=== PATIENT | male | born 1995 | race Caucasian/White ===

== ENCOUNTER 2017-01-26 21:15 | Emergency (ER) | payer MEDICAID ==
[2017-01-26 21:43] VITALS: BP 132/83
[2017-01-26] MEDS ORDERED: Bacitracin Oint 1 GM U/D Packet TOP ONE (22:05)
--- NOTE | 2017-01-26 22:09 | EDM.PDOC ---
[id number]: BUG BITE THAT IS INFECTED Time Seen by Provider: 01/26/17 21:50 Source of Information: Reports: Patient, Family History Limitations: Reports: No Limitations - History of Present Illness INITIAL COMMENTS - FREE TEXT/NARRATIVE: 21-year-old male who sustained a bug bite on the back of his left foot 2 days ago noticed that it's more red today and kind of blistering so came in to have it checked. No fever or chills, no swelling or drainage, no red streaks. Location: Reports: Lower Extremity, Left - Related Data Allergies Allergy/AdvReac Type Severity Reaction Status Date / Time No Known Allergies Allergy Verified 01/26/17 21:37 Home Meds: Home Meds Divalproex Sodium [Depakote ER] 500 mg PO DAILY 01/26/17 [History] levETIRAcetam [Keppra XR] 500 mg PO TID 01/26/17 [History] Past Medical History Neurological History: Reports: Seizure Hematologic History: Reports: None - Past Surgical History GI Surgical History: Reports: Appendectomy Social & Family History - Tobacco Use Smoking Status *Q: Current Every Day Smoker Years of Tobacco use: 3 Packs/Tins Daily: 0.2 - Recreational Drug Use Recreational Drug Use: No ED ROS GENERAL - Review of Systems Review Of Systems: See Below Constitutional: Denies: Fever, Chills Respiratory: Denies: Shortness of Breath Cardiovascular: Denies: Chest Pain GI/Abdominal: Denies: Nausea, Vomiting Neurological: Denies: Headache ED EXAM, SKIN/RASH Exam: See Below Exam Limited By: No Limitations General Appearance: Alert, No Apparent Distress Respiratory/Chest: No Respiratory Distress Extremities: Other (Rest of exam is limited to his left lower extremity. He has a 2 cm oval erythematous nonblanching lesion with sharp borders with a small amount of blistering and a central necrotic appearing center typical of a toxic reaction to an insect bite) Course - Vital Signs Last Recorded V/S: Last Vital Signs Temp 97.2 F 01/26/17 21:41 Pulse 71 01/26/17 21:41 Resp 16 01/26/17 21:41 BP 132/83 01/26/17 21:41 Pulse Ox 97 01/26/17 21:41 - Orders/Labs/Meds Meds: Medications Discontinued Medications Generic Name Dose Route Start Last Admin Trade Name Lluvia PRN Reason Stop Dose Admin Bacitracin 1 dose 01/26/17 22:05 01/26/17 22:16 Bacitracin Oint 1 Gm TOP 01/26/17 22:06 1 dose ONETIME ONE Administration - Re-Assessments/Exams Free Text/Narrative Re-Assessment/Exam: 01/26/17 22:07 Reassured the patient that this does not need oral antibiotics at this time, we did give him some topical bacitracin and a Band-Aid and he can recheck if worsening. Departure - Departure Time of Disposition: 22:20 Disposition: Home, Self-Care 01 Condition: Good Clinical Impression: Insect bite of leg, left Qualifiers: Encounter type: initial encounter Qualified Code(s): S80.862A - Insect bite ( nonvenomous), left lower leg, initial encounter - Discharge Information Instructions: Insect Bite, [id number] Referrals: Angella Voss NP [Primary Care Provider] - Forms: ED Department Discharge Care Plan Goals: Keep wound clean and covered well healing. Topical antibiotic may be beneficial , and return if worsening such as red streaks or fever.
== END 2017-01-26 22:20 | disposition home or self-care (01) ==
LOC: JP.ED 21:15
DX: S80.862A Insect bite (nonvenomous), left lower leg, initial encounter (principal); F17.210 Nicotine dependence, cigarettes, uncomplicated; Z79.899 Other long term (current) drug therapy; W57.XXXA Bitten or stung by nonvenomous insect and other nonvenomous arthropods, initial encounter
CPT/HCPCS: 99283

== ENCOUNTER 2018-10-01 17:28 | Emergency (ER) | payer MEDICAID, OTHER ==
[2018-10-01 19:23] VITALS: BP 136/89
[2018-10-01] MEDS ORDERED: Amoxicillin/Clavulanate K 875-125 MG Tab PO ONE (20:41)
[2018-10-01] MEDS ORDERED: oxyCODONE 5 MG Tab PO ONE (20:41)
--- NOTE | 2018-10-01 21:03 | EDM.PDOC ---
ED HPI GENERAL MEDICAL PROBLEM - General Chief Complaint: ENT Problem Stated Complaint: TOOTH Time Seen by Provider: 10/01/18 21:00 Source of Information: Reports: Patient History Limitations: Reports: No Limitations - History of Present Illness INITIAL COMMENTS - FREE TEXT/NARRATIVE: 22-year-old presents with concerns of dental pain. Reports a history of dental caries. Having pain in one of his right upper molars now for 2 days. Became very severe today. It does not radiate. He is having no trismus or difficulty swallowing. No fevers or chills. - Related Data Allergies Allergy/AdvReac Type Severity Reaction Status Date / Time No Known Allergies Allergy Verified 10/01/18 18:36 Home Meds: Home Meds Divalproex Sodium [Depakote ER] 500 mg PO DAILY 01/26/17 [History] levETIRAcetam [Keppra XR] 500 mg PO TID 01/26/17 [History] Amoxicillin/Potassium Clav [Augmentin 875-125 Tablet] 1 each PO Q12H #14 tablet 10/01/18 [Rx] oxyCODONE 5 mg PO ASDIRECTED #2 tab 10/01/18 [Rx] Past Medical History Neurological History: Reports: Seizure Hematologic History: Reports: None - Past Surgical History GI Surgical History: Reports: Appendectomy Social & Family History - Tobacco Use Smoking Status *Q: Current Every Day Smoker Years of Tobacco use: 4 Packs/Tins Daily: 0.7 ED ROS ENT - Review of Systems Review Of Systems: See Below Constitutional: Reports: No Symptoms HEENT: Reports: Dental Pain Respiratory: Reports: No Symptoms Cardiovascular: Reports: No Symptoms Endocrine: Reports: No Symptoms GI/Abdominal: Reports: No Symptoms : Reports: No Symptoms Musculoskeletal: Reports: No Symptoms Skin: Reports: No Symptoms Neurological: Reports: No Symptoms Psychiatric: Reports: No Symptoms Hematologic/Lymphatic: Reports: No Symptoms Immunologic: Reports: No Symptoms ED EXAM, ENT - Physical Exam Exam: See Below Exam Limited By: No Limitations General Appearance: Alert, WD/WN Ears: Normal External Exam Nose: Normal Inspection Mouth/Throat: Other ( Poor dentition. Pain to percussion R upper molar. No gingival erythema or swelling.) Head: Atraumatic, Normocephalic Neck: Normal Inspection Respiratory/Chest: No Respiratory Distress Cardiovascular: Regular Rate, Rhythm GI/Abdominal: Soft Back: Normal Inspection Extremities: Normal Inspection Neurological: Alert, Oriented Psychiatric: Normal Affect, Normal Mood Skin: Warm, Dry Course - Vital Signs Last Recorded V/S: Last Vital Signs Temp 35.9 C 10/01/18 18:41 Pulse 79 10/01/18 18:41 Resp 16 10/01/18 18:41 BP 136/89 10/01/18 18:41 Pulse Ox 98 10/01/18 18:41 - Orders/Labs/Meds Meds: Medications Discontinued Medications Generic Name Dose Route Start Last Admin Trade Name Lluvia PRN Reason Stop Dose Admin Amoxicillin/Clavulanate Potassium 1 tab 10/01/18 20:41 10/01/18 20:51 Augmentin 875 Mg/125 Mg PO 10/01/18 20:42 1 tab ONETIME ONE Administration Oxycodone HCl 5 mg 10/01/18 20:41 10/01/18 20:51 Oxycodone PO 10/01/18 20:42 5 mg ONETIME ONE Administration - Re-Assessments/Exams Free Text/Narrative Re-Assessment/Exam: 22-year-old presents with concerns of dental pain. Has poor dentition and history of dental pain and caries. On exam has tenderness to percussion over when his right upper molars. No surrounding gingival swelling or abscess seen drainage. He is otherwise well-appearing. Prescribed him course of Augmentin. I have written him for 2 oxycodone until he can follow-up with his dentist. 10/02/18 00:14 Departure - Departure Time of Disposition: 20:50 Disposition: Home, Self-Care 01 Condition: Good Clinical Impression: Pain, dental - Discharge Information *PRESCRIPTION DRUG MONITORING PROGRAM REVIEWED*: No *COPY OF PRESCRIPTION DRUG MONITORING REPORT IN PATIENT JUN: No Prescriptions: Amoxicillin/Potassium Clav [Augmentin 875-125 Tablet] 1 each PO Q12H #14 tablet oxyCODONE 5 mg PO ASDIRECTED #2 tab Instructions: Dental Abscess, [id number], Peritonsillar Abscess, [id number] Referrals: PCP,None [Primary Care Provider] - Forms: ED Department Discharge Additional Instructions: Take the prescribed antibiotic as directed starting tomorrow morning Use the prescribed pain medication as needed until you can see a dentist if tylenol and ibuprofen are not working
== END 2018-10-01 21:02 | disposition home or self-care (01) ==
LOC: JP.ED 17:28
DX: K08.89 Other specified disorders of teeth and supporting structures (principal); F17.210 Nicotine dependence, cigarettes, uncomplicated; Z79.899 Other long term (current) drug therapy
CPT/HCPCS: 99282; A9270

== ENCOUNTER 2018-11-02 18:07 | Emergency (ER) | payer MEDICAID ==
[2018-11-02 18:15] VITALS: BP 134/78
--- NOTE | 2018-11-02 18:38 | EDM.PDOC ---
ED HPI GENERAL MEDICAL PROBLEM - General Chief Complaint: Neurological Problem Stated Complaint: VIA MEDICAL Time Seen by Provider: 11/02/18 18:20 Source of Information: Reports: Patient, Family, Old Records History Limitations: Reports: No Limitations - History of Present Illness INITIAL COMMENTS - FREE TEXT/NARRATIVE: 22 yo male with a known seizure disorder and who takes Keppra and Depakote for this presents via EMS after a self-limited 5 min duration generalized seizure. His last seizure was over 3 yrs ago. He admits that he has missed several doses of his meds recently. He has taken his usual doses today. He did bite his tongue during today's seizure. Onset: Today Onset Date: 11/02/18 Onset Time: 17:55 Duration: Minutes: (5), Resolved Prior to Arrival Location: Reports: Generalized Quality: Reports: Other (no reported pain) Severity: Moderate Improves with: Reports: Medication Worsens with: Reports: Other (missing doses of his meds) Context: Reports: Other (See HPI) Associated Symptoms: Reports: No Other Symptoms Treatments SWAGE TENDER: Reports: Other (see below) (usual meds) - Related Data Allergies Allergy/AdvReac Type Severity Reaction Status Date / Time No Known Allergies Allergy Verified 11/02/18 18:17 Home Meds: Home Meds Divalproex Sodium [Depakote ER] 500 mg PO DAILY 01/26/17 [History] levETIRAcetam [Keppra XR] 500 mg PO TID 01/26/17 [History] Past Medical History Neurological History: Reports: Seizure Hematologic History: Reports: None - Past Surgical History GI Surgical History: Reports: Appendectomy Social & Family History - Tobacco Use Smoking Status *Q: Current Every Day Smoker Years of Tobacco use: 3 Packs/Tins Daily: 0.2 - Caffeine Use Caffeine Use: Reports: Soda - Recreational Drug Use Recreational Drug Use: Yes Recreational Drug Type: Reports: Marijuana/Hashish Recreational Drug Use Frequency: Weekly ED ROS GENERAL - Review of Systems Review Of Systems: See Below Constitutional: Reports: No Symptoms HEENT: Reports: Other (mild tongue discomfort) Respiratory: Reports: No Symptoms Cardiovascular: Reports: No Symptoms Endocrine: Reports: No Symptoms GI/Abdominal: Reports: No Symptoms : Reports: No Symptoms Musculoskeletal: Reports: No Symptoms Skin: Reports: No Symptoms Neurological: Reports: Seizure Psychiatric: Reports: No Symptoms - Physical Exam Exam: See Below Exam Limited By: No Limitations General Appearance: Alert, WD/WN, No Apparent Distress Eye Exam: Bilateral Eye: Normal Inspection Ears: Normal External Exam, Normal Canal, Hearing Grossly Normal, Normal TMs Nose: No Blood, Other (small distal nasal abrasion) Throat/Mouth: Normal Lips, Normal Oropharynx, Normal Voice, No Airway Compromise , Evidence of Tongue Biting Head Exam: Atraumatic, Normocephalic Neck: Normal Inspection, Non-Tender Respiratory/Chest: No Respiratory Distress, Lungs Clear, Normal Breath Sounds, No Accessory Muscle Use Cardiovascular: Regular Rate, Rhythm, No Edema GI/Abdominal: Normal Bowel Sounds, Soft, Non-Tender, No Distention Neuro Exam (Abbreviated): Alert, Oriented, CN II-XII Intact, Normal Cognition, No Motor/Sensory Deficits Back Exam: Normal Inspection. No: CVA Tenderness (R), CVA Tenderness (L) Extremities: Normal Inspection, Normal Range of Motion, Non-Tender, No Pedal Edema Psychiatric: Normal Affect, Normal Mood Skin Exam: Warm, Dry, Intact, Normal Color, No Rash Course - Vital Signs Last Recorded V/S: Last Vital Signs Temp 35.7 C 11/02/18 18:16 Pulse 77 11/02/18 18:16 Resp 10 L 11/02/18 18:16 BP 134/78 11/02/18 18:16 Pulse Ox 96 11/02/18 18:16 - Orders/Labs/Meds Orders: Active Orders 24 hr Category Date Time Status VALPROIC ACID [CHEM] Stat Lab 11/02/18 18:09 Ordered Departure - Departure Time of Disposition: 18:40 Disposition: Home, Self-Care 01 Condition: Good Clinical Impression: Generalized convulsive epilepsy - Discharge Information *PRESCRIPTION DRUG MONITORING PROGRAM REVIEWED*: No *COPY OF PRESCRIPTION DRUG MONITORING REPORT IN PATIENT JUN: No Instructions: Seizure, Adult, [id number] Referrals: PCP,None [Primary Care Provider] - Additional Instructions: Resume your regular medications taking care so as not to miss doses. Return here as needed. Stay in contact with your seizure provider. No driving until you have been seizure-free for 3 months. - My Orders Last 24 Hours: My Active Orders 11/02/18 18:09 VALPROIC ACID [CHEM] Stat - Assessment/Plan Last 24 Hours: My Active Orders 11/02/18 18:09 VALPROIC ACID [CHEM] Stat
== END 2018-11-02 18:48 | disposition home or self-care (01) ==
LOC: JP.ED 18:07
DX: G40.409 Other generalized epilepsy and epileptic syndromes, not intractable, without status epilepticus (principal); F17.210 Nicotine dependence, cigarettes, uncomplicated; Z79.899 Other long term (current) drug therapy
CPT/HCPCS: 99283; 99284

== ENCOUNTER 2022-09-08 09:35 | Emergency (ER) | payer MEDICAID ==
[2022-09-08 09:49] VITALS: BP 133/87; PULSE 121
[2022-09-08] MEDS ORDERED: Ketorolac 30 MG/ML SDV IM ONE (10:04)
[2022-09-08 10:39] LABS: ESTIMATED GFR 126 mL/min (>60)
== END 2022-09-08 11:16 | disposition home or self-care (01) ==
LOC: JP.ED 09:35
DX: K04.7 Periapical abscess without sinus (principal); Z72.0 Tobacco use
CPT/HCPCS: 36415; 80053; 81001; 83605; 85025; 96372; 99283; J1885